=== PATIENT | female | born 1965 | race Caucasian/White ===

== ENCOUNTER → 2019-12-01 11:10 | Outpatient (BNVA) | payer MEDICARE, MEDICAID, SELFPAY | PROVIDERS: Family Provider Family Medicine; Referring Provider Physician Assistant Medical; Visit Provider Podiatrist Foot & Ankle Surgery | DX: M79.671 Pain in right foot (principal); M24.674 Ankylosis, right foot | CPT/HCPCS: 73630 ==

== ENCOUNTER 2019-12-01 14:31 | Outpatient (CLI) | payer MEDICARE, MEDICAID, SELFPAY | END 2019-12-01 14:32 | disposition home or self-care (01) | LOC: SPT 14:32 | PROVIDERS: Family Provider Family Medicine; Visit Provider Podiatrist Foot & Ankle Surgery | DX: M76.71 Peroneal tendinitis, right leg (principal) | CPT/HCPCS: L4361 ==

== ENCOUNTER 2021-03-18 10:29 | Emergency (ER) | payer MEDICARE, MEDICAID, SELFPAY ==
[2021-03-18 10:44] VITALS: BP 121/79; PULSE 80; RESP 15; TEMP 36.5; O2SAT 99; BMI 31.1
--- NOTE | 2021-03-18 11:00 | CTR_ITS ---
PROCEDURE INFORMATION: Exam: CT Abdomen And Pelvis Without Contrast Exam date and time: 03/18/2021 11:01 AM Age: 55 years old Clinical indication: Abdominal pain; Right; Patient HX: RT flank and low back pain; Additional info: Right flank pain TECHNIQUE: Imaging protocol: Computed tomography of the abdomen and pelvis without contrast. Radiation optimization: All CT scans at this facility use at least one of these dose optimization techniques: automated exposure control; mA and/or kV adjustment per patient size (includes targeted exams where dose is matched to clinical indication); or iterative reconstruction. COMPARISON: No relevant prior studies available. RADIATION DOSE METRICS: Total DLP (mGy-cm): 1449.62 FINDINGS: Liver: No mass. Gallbladder and bile ducts: Unremarkable. No ductal dilation. Pancreas: Normal. No ductal dilation. Spleen: Normal. No splenomegaly. Adrenal glands: Normal. No mass. Kidneys and ureters: 15 mm calculus in the right renal pelvis, right lower pole calculus. Minimal right hydronephrosis and right hydroureter, no ureteral calculus. Small left renal calculus versus parenchymal calcification, no left hydronephrosis. Stomach and bowel: No acute findings. No obstruction. No mucosal thickening. Appendix: No evidence of appendicitis. Intraperitoneal space: Unremarkable. No free air. No significant fluid collection. Vasculature: No abdominal aortic aneurysm. Lymph nodes: No significant adenopathy. Urinary bladder: Unremarkable as visualized. Reproductive: Hysterectomy. Bones/joints: No acute findings. Soft tissues: Unremarkable. CT/CT kidney stone [id number] IMPRESSION: Right renal calculi, minimal right hydronephrosis. Radiation Dose CTDIVOL = (mGy): DLP = 1449.62 (mGy-cm)
--- NOTE | 2021-03-18 11:02 | ED_ITS ---
HPI - Abdominal Pain General: Chief Complaint: Abdominal Pain Stated Complaint: FLANK AND ABD PAIN Time Seen by Provider: 03/18/21 10:56 Source: patient Mode of arrival: ambulatory Limitations: no limitations History of Present Illness: HPI narrative: Patient with right flank and right lower quadrant abdominal pain x1 week. Has been given a shot of IM Rocephin and has been on 4 days of Levaquin for presumed UTI/pyelonephritis. Pain is not improving. MD elicited complaint: abdominal pain Pain Consistency: constant Location: RLQ and R flank Associated Symptoms: Denies fever(s) Review of Systems General: Reports: 10 or more systems reviewed and unremarkable except in HPI and below Const: Denies: fever(s) Eyes: Denies: change in vision ENMT: Denies: throat pain Card: Denies: chest pain Resp: Denies: dyspnea GI: Reports: abdominal pain : Reports: flank pain Musc: Denies: neck pain Skin/Breast: Denies: rash PFSH ED PFSH: Medical History (Updated 12/01/19 @ 12:20 by Anant Arroyo DPM) Hyperlipidemia Hypertension Hypothyroid Seizure disorder Surgical History (Updated 12/01/19 @ 12:20 by Anant Arroyo DPM) History of bunionectomy of right great toe Hx of appendectomy Hx of hysterectomy Hx of tubal ligation Family History Denies family history of Diabetes CAD (coronary artery disease) Clotting disorder Dementia Hyperlipidemia Psychiatric illness Chronic kidney disease (CKD) Suicide Anesthesia complication Bleeding disorder Family history of premature coronary artery disease Lung disease Cancer Hypertension Stroke Social History (Updated 12/01/19 @ 11:49 by Susi De Leon LPN) Smoking and tobacco status: never smoked Alcohol intake: never Physical Exam Const: COMMON NORMALS: no acute distress, average body habitus, patient oriented x3, no limitations, healthy appearing, alert and well nourished HENMT: COMMON NORMALS: normocephalic, atraumatic, hearing grossly normal bilaterally, external ears normal, EAC's normal, TM's normal bilaterally, Normal external nose present, Normal nasal mucous membranes and turbinates present, moist oral mucous membranes, oropharynx normal, dentition normal and gingiva normal HEAD & SCALP: normocephalic and atraumatic NOSE: Normal external nose present and Normal nasal mucous membranes and turbinates present EXTERNAL EAR: Yes external ears normal EXTERNAL AUDITORY CANAL: EAC's normal TYMPANIC MEMBRANE: TM's normal bilaterally Neck/C-Spine: COMMON NORMALS: no JVD Resp: COMMON NORMALS: normal respiratory effort, No retractions, No use of accessory muscles, clear to auscultation bilaterally and percussion normal AUSCULTATION: clear to auscultation bilaterally PERCUSSION: percussion normal Cardio: COMMON NORMALS: no JVD, regular rate, regular rhythm, S1 normal heart sound present, S2 normal heart sound present, No gallops present (Cardio), No clicks present (Cardio), No murmurs present (Cardio), No rub (Cardio) and Peripheral pulses 2+ throughout RATE: regular rate RHYTHM: regular rhythm HEART SOUNDS: S1 normal heart sound present and S2 normal heart sound present PERIPHERAL PULSES: Peripheral pulses 2+ throughout GI: PALPATION: Yes Tenderness to palpation present (GI) (Mild tenderness to the right lower quadrant and right flank) Extremity: COMMON NORMALS: normal to inspection Neuro: COMMON NORMALS: patient oriented x3 SENSORIUM/ORIENTATION: Yes alert Course Vital Signs: Vital signs: Vital Signs Temperature 97.7 F 03/18/21 10:44 Pulse Rate 80 03/18/21 10:44 Respiratory Rate 15 03/18/21 10:44 Blood Pressure 121/79 03/18/21 10:44 Pulse Oximetry 99 03/18/21 10:44 MDM - Abdominal Pain MDM Narrative: Medical decision making narrative: Patient with UTI despite having been on Levaquin. We will switch antibiotics to Bactrim and give another dose of IV Rocephin as well as send urine off for culture. Patient also has very large intrarenal kidney stone on the right. Upon further discussion patient states that she gets UTIs about once a month for the past 2 years. Will have patient follow-up with urology to see if there is anything that needs to be done about this kidney stone. Offered pain medicine but patient refused. Lab Data: Labs: Lab Results 03/18/21 03/18/21 03/18/21 Range/Units 10:56 11:36 11:36 WBC 4.2 (4.0-10.0) 10^3/ uL RBC 4.66 (4.1-5.3) 10^6/u L Hgb 13.5 (11.5-15.3) g/dL Hct 41.6 (37.0-47.0) % MCV 89.3 (81-99) fL MCH 29.0 (28.0-34.0) pg MCHC 32.5 (30.0-36.0) g/dL RDW 12.9 (12.1-15.1) % Plt Count 200 (130-400) 10^3/c mm MPV 9.2 (7.4-10.4) fL Neut % (Auto) 40.4 % Lymph % (Auto) 44.7 % [place] % (Auto) 10.6 % Eos % (Auto) 3.1 % Baso % (Auto) 1.2 % Neut # (Auto) 1.68 L (1.8-7.7) 10^3/u L Lymph # (Auto) 1.9 (0.8-4.8) 10^3/u L [place] # (Auto) 0.4 (0.2-0.9) 10^3/u L Eos # (Auto) 0.1 (0.0-0.8) 10^3/u L Baso # (Auto) 0.1 (0.0-0.1) 10^3/u L Nucleated RBC % (a uto) 0 % Nucleated RBCs # 0.0 /100WBC Sodium 141 (136-145) mmol/L Potassium 4.4 (3.5-5.1) mmol/L Chloride 105 (98-107) mmol/L Carbon Dioxide 28 (22-29) mmol/L Anion Gap 12.4 (5-19) BUN 14 (6-20) mg/dL Creatinine 0.6 (0.5-0.9) mg/dL GFR Calculation 104.2 (90-130) mL/min Glucose 83 (65-115) mg/dL Calculated Osmolal ity 292 (285-295) mOsm/k g Calcium 8.9 (8.5-10.5) mg/dL Total Bilirubin 0.2 (0.15-1.2) mg/dL AST 25 (0-32) U/L ALT 24 (0-33) U/L Alkaline Phosphata se 131 H (35-105) IU/L Total Protein 7.1 (6.6-8.7) g/dL Albumin 4.2 (3.5-5.2) g/dL Globulin 2.9 (1.3-4.6) g/dL Urine Color Yellow (Yellow) Urine Appearance Hazy A (CLEAR) Urine pH 8 H (5-7) Ur Specific Gravit y 1.015 (1.005-1.030) Urine Protein Neg (Negative) Urine Glucose (UA) Norm (Normal) Urine Ketones Negative (Negative) Urine Blood 2+ H (Negative) Urine Nitrate Negative (Negative) Urine Bilirubin Neg (Negative) Prot Sulfosalicyli c Acd Negative (Negative) Urine Urobilinogen Norm (Negative) mg/dL Ur Leukocyte Loree ase 2+ H (Negative) Urine RBC 5-10 H (0-2) /hpf Urine WBC 55-80 H (0-5) /hpf Ur Squamous Epith Cells Rare (0-5) /hpf Amorphous Sediment 1+ /hpf Urine Bacteria 2+ H (NONE) /hpf Urine Mucus Trace /hpf Discharge Plan Discharge Condition: Stable Prescriptions: New sulfamethoxazole-trimethoprim [Bactrim DS] 800-160 mg tablet 1 tab PO BID 10 Days Qty: 20 RF: 0 No Action (DME) CAM WALKER Qty: 1 RF: 0 atorvastatin 20 mg tablet 20 mg PO BEDTIME RF: 0 krill oil 1 cap PO QAM RF: 0 multivitamin Tablet 1 tab PO BEDTIME RF: 0 Children's Tylenol 160 mg Tablet,Chewable 640 mg PO PRN RF: 0 phenytoin sodium extended 100 mg capsule 300 mg PO TID RF: 0 omeprazole 40 mg capsule,delayed release(DR/EC) 40 mg PO DAILY PRN (Reason: Heartburn) RF: 0 levothyroxine 75 mcg tablet 75 mcg PO QAM RF: 0 lisinopril 10 mg tablet 10 mg PO QAM RF: 0 Aleve 220 mg Tablet 440 mg PO PRN RF: 0 levofloxacin 500 mg tablet 500 mg PO DAILY RF: 0 albuterol sulfate 90 mcg/actuation HFA aerosol inhaler 4 puff INHALATION Q4H PRN (Reason: Shortness Of Breath) RF: 0 fenofibrate nanocrystallized 48 mg tablet 48 mg PO QAM RF: 0 Vitamin D3 125 mcg (5,000 unit) Tablet 125 mcg PO DAILY RF: 0 Probiotic 1 cap PO BEDTIME RF: 0 Discharge Orders: Discharge ED (Routine); Ordered 03/18/21 Ordered By: Ed Ding Referrals: Ino Rea MD [Primary Care Provider] - 4-7 days Sanchez Paulson MD [Physician] - 4-7 days Discharge Diet: Advance as tolerated Discharge Activity: Resume usual activity Coding Level of Care Code ED [facility] for Chg Fwd Exam Detailed
[2021-03-18 11:28] LABS: Bilirubin Urine Neg (Negative); Blood Urine 2+ (Negative); Glucose Urine UA Norm (Normal); Ketones Urine Negative (Negative); Nitrate Urine Negative (Negative); Protein Urine Neg (Negative); Specific Gravity, Urine 1.015 (1.005-1.030); Sulfosalicylic Acid Urine Negative (Negative); Urine Appearance Hazy (CLEAR); Urine Color Yellow (Yellow); Urobilinogen Urine Norm (Negative); pH Urine 8 (5-7)
[2021-03-18 11:29] LABS: Leukocyte Esterase Urine 2+ (Negative)
[2021-03-18 11:30] LABS: Bacteria Urine 2+ /hpf; Squamous Epithelial Cell Urine RARE /hpf (0-5); WBC Urine 55-80 /hpf (0-5)
[2021-03-18 11:31] LABS: Add Urine Culture? Yes; Amorphous Sediment Urine 1+ /hpf; Mucus Urine TRACE /hpf
[2021-03-18 11:49] LABS: Basophils # 0.1 10^3/uL (0.0-0.1); Basophils % 1.2 %; Eosinophils # 0.1 10^3/uL (0.0-0.8); Eosinophils % 3.1 %; Hematocrit 41.6 % (37.0-47.0); Hemoglobin 13.5 g/dL (11.5-15.3); Lymphocytes # 1.9 10^3/uL (0.8-4.8); Lymphocytes % 44.7 %; Mean Corpuscular HGB Conc 32.5 g/dL (30.0-36.0); Mean Corpuscular Volume 89.3 fL (81-99); Mean Platelet Volume 9.2 fL (7.4-10.4); Monocytes # 0.4 10^3/uL (0.2-0.9); Monocytes % 10.6 %; Neutrophils # 1.68 10^3/uL (1.8-7.7); Neutrophils % 40.4 %; Nucleated Red Blood Cells % 0 %; Platelet Count 200 10^3/cmm (130-400); Red Blood Count 4.66 10^6/uL (4.1-5.3); Red Cell Distribution Width 12.9 % (12.1-15.1); White Blood Count 4.2 10^3/uL (4.0-10.0)
[2021-03-18 12:11] LABS: Alanine Aminotransferase 24 U/L (0-33); Albumin Level 4.2 g/dL (3.5-5.2); Alkaline Phosphatase 131 IU/L (35-105); Anion Gap 12.4 (5-19); Aspartate Amino Transferase 25 U/L (0-32); Blood Urea Nitrogen 14 mg/dL (6-20); Calcium 8.9 mg/dL (8.5-10.5); Carbon Dioxide 28 mmol/L (22-29); Chloride 105 mmol/L (98-107); Globulin 2.9 g/dL (1.3-4.6); Glomerular Filtration Rate 104.2 mL/min (90-130); Glucose 83 mg/dL (65-115); Osmolality Calculated 292 mOsm/kg (285-295); Potassium 4.4 mmol/L (3.5-5.1); Sodium 141 mmol/L (136-145); Total Bilirubin 0.2 mg/dL (0.15-1.2); Total Protein 7.1 g/dL (6.6-8.7)
[2021-03-18 12:51] VITALS: BP 103/70; PULSE 82; RESP 16; O2SAT 99
[2021-03-18] MEDS: sulfamethoxazole-trimeth DS 160-800 mg Tablet 1 TAB PO (12:57)
[2021-03-18] MEDS: cefTRIAXone 1,000 MG in sodium chloride 0.9% (plus) 50 ML 100 MG IV (12:59)
--- NOTE | 2021-03-21 09:35 | DCPLANNER ---
Patient is to follow up with Dr. Paulson. aviation project manager called the office of Dr. Paulson, for a kidney stone. aviation project manager called the office of Dr. Paulson, spoke with [place], gave clinic patients information. aviation project manager was told that patients information would be printed and reviewed. Clinic will call patient with appointment information.
--- NOTE | 2021-03-22 14:25 | DCPLANNER ---
Patient has a follow up appointment scheduled for Friday, March 28, 2021 at 2:[address] Paulson. Clinic will call patient with appointment information.
--- NOTE | 2021-05-15 07:32 | DCPLANNER ---
Patient had a follow up appointment scheduled for 03.28.[address] Paulson - patient did attend appointment.
== END 2021-03-18 13:14 ==
PROVIDERS: Emergency Provider Emergency Medicine; PCP Family Medicine
DX: R10.9 Unspecified abdominal pain (principal); E78.5 Hyperlipidemia, unspecified; I10 Essential (primary) hypertension
CPT/HCPCS: 74176; 80053; 81001; 85025; 87086; 96365; 99283; J0696

== ENCOUNTER 2021-03-28 13:06 | Outpatient (CLI) | payer MEDICARE, MEDICAID, SELFPAY ==
--- NOTE | 2021-03-28 13:00 | XR_ITS ---
WS: [id number] KUB, AP view, 03/28/2021 Clinical Data: KIDNEY STONE Comparison: None. Findings: No abnormal intraabdominal masses are seen. There is no dilatated small bowel or evidence of obstruc tion. There are calcifications overlying the right kidney the largest of which measures 1.3 cm. No left zara al calcifications are seen. There are calcifications in the true pelvis. XR/XR KUB [id number] Impression: Right renal calcifications.
== END 2021-03-28 13:07 | disposition home or self-care (01) ==
LOC: RAD 13:08
PROVIDERS: PCP Family Medicine; Visit Provider Urology
DX: N20.0 Calculus of kidney (principal); Z20.822 Contact with and (suspected) exposure to COVID-19; N39.0 Urinary tract infection, site not specified
CPT/HCPCS: 74018; 81003; 87635

== ENCOUNTER 2021-04-02 11:59 | Day surgery (SDC) | payer MEDICARE, MEDICAID, SELFPAY ==
[2021-03-30 13:50] VITALS: BMI 30.7
--- NOTE | 2021-04-02 12:01 | XR_ITS ---
WS: [id number] Exam: XR KUB [id number] Date/Time of Exam: 04/02/2021 12:20 PM Reason For Exam: Preop right ESWL stent Comparison 03/28/2021. Several calcifications superimpose right renal silhouette and are most likely renal calculi. The larg est stone measures 1.3 cm at greatest diameter and appears to be in the region of the right renal pel vis. No calcifications noted in the region of the left kidney. Nonspecific bilateral pelvic calcifica tions noted. No bowel obstruction or free air. Visualized organ margins appear normal. XR/XR KUB [id number] IMPRESSION: 1. Calcifications superimposing the right kidney that apparently represent mult iple renal stones.
[2021-04-02 12:39] VITALS: BP 120/83; PULSE 75; RESP 18; TEMP 37.1; O2SAT 98
[2021-04-02] MEDS: sodium chloride 0.9% 1,000 ML 30 ML IV (13:14)
--- NOTE | 2021-04-02 14:16 | W.PM.OPSUD ---
Surgery/Procedure H&P Update DATE OF PROCEDURE: April 02, 2021 DATE H&P PERFORMED: 03/28/21 H&P UPDATE INFORMATION: I have reviewed H&P completed within last 30 days, I have examined patient prior to procedure, No changes to prior documentation and H&P is in [facility] EMR on date indicated PREOP DIAGNOSIS: 2 large right renal calculi PLANNED PROCEDURE: Operation Date: 04/02/21 13:55 Proposed Procedures p right ESWL [id number] 23277 n20.0(Right) - Sanchez Paulson MD s Cystoscopy(Not Applicable) - Sanchez Paulson MD s Ureteral Stent Placement(Not Applicable) - Sanchez Paulson MD
--- NOTE | 2021-04-02 14:17 | P.OP_ITS ---
Operative Report Date of procedure: April 02, 2021 Pre-op Diagnosis: 2 large right renal calculi Post-op diagnosis: same Procedure Done: 1. Cystoscopy, right ureteral stent placement (seven Marshallese by 24 cm double- pigtail sten without string t) Pathology: none sent Surgeon: Lorene Anesthesia: General Estimated blood loss: Minimal Urine output: Not measured Complications: None Findings: Stones easily located. 2500 shocks administered. Stent left indwelling at the completion of the procedure Condition: stable Disposition: PACU Brief History: Mrs. Abrams is a very pleasant 55-year-old white female recently diagnosed with two large stones in the right collecting system one near the UPJ and one in the midpole calyx. She has had complicated picture by UTIs but no obstructive pyelonephritis demonstrated. Admitted now for cystoscopy, stent placement, ESWL to the right renal calculi. Procedure: After routine preoperative evaluation examination and obtaining of informed consent she was taken to the operating suite on 04/02/2020 where general anesthesia was administered without difficulty after appropriate timeout was performed, SCDs confirmed to be functioning, preoperative antibiotics administered, beta-natalio protocol confirmed. Prepped and draped in usual sterile fashion in dorsolithotomy position paying careful attention to avoiding pressure points. 21 Marshallese cystoscope with 30 degree lens was introduced into urethra meatus and advanced into the bladder to videoscopy. Bladder was systematically examined and found to be within normal limits. Flexible tip guidewire was advanced up the left ureter up into the upper pole calyx and a seven Marshallese by 24 cm double-pigtail stent was advanced over the guidewire through the cystoscope into appropriate position as confirmed via fluoroscopy and cystoscopy. Bladder was drained and this portion of the procedure was completed. She was then repositioned on the Dornier unit such that the stone was located at the focal point first focusing on the renal pelvic stone. The stone was easily identified with the shock head positioned posteriorly. Intensity was initiated at one with advancement to an intensity of four after a several minute pause following about 300 shocks. Findings: The first stone (located in the UPJ area) was treated with about 1250 shocks with excellent change. The focal point was then brought to the calyceal stone in the interpolar area and it was treated with about the same number of shocks also with excellent change. At the completion of the shockwave therapy both stones were dramatically changed. The renal pelvic stone was very difficult to see at all. She was awakened in the operating room and returned to recovery room in stable condition. PLANS: 1. Follow-up in 7 to 10 days for KUB possible cystoscopy stent removal. 2. Did review again that there is a possibility that she will require second therapy or potentially more prolonged stent indwelling waiting for confirmation of adequate fragmentation.
--- NOTE | 2021-04-02 14:50 | ANES.PREANE2 ---
Pre-Anesthetic Assessment Pre-Anesthetic Assessment: Height/Weight: Height 1.57 m Weight 76.204 kg Temp Pulse Resp BP Pulse Ox 98.7 F 75 18 120/83 98 04/02/21 12:39 04/02/21 12:39 04/02/21 12:39 04/02/21 12:39 04/02/21 12:39 Preop Diagnosis: 2 large right renal calculi Proposed Procedure: Operation Date: 04/02/21 13:55 Proposed Procedures p right ESWL [id number] n20.0(Right) - Sanchez Paulson MD s Cystoscopy(Not Applicable) - Sanchez Paulson MD s Ureteral Stent Placement(Not Applicable) - Sanchez Paulson MD Was Beta Alexa taken within 24 hours: N/A Was Clonidine taken within 24 hours: N/A Last intake: Intake Last Liquid Date 04/02/21 Last Liquid Time 06:30 Last Solid Date 03/31/21 Last Solid Time 18:00 Social: Social History: No alcohol and No tobacco Exam: Pre-Anes Outpt Exam: alert, oriented x 3, clear to auscultation bilaterally and regular rate & rhythm Airway: Submandibular: WNL Cervical ROM: WNL MP: 2 CV/HEM: CV/HEM: HTN Metabolic: Metabolic: Thyroid Neuropsych: Neuropsych: Seizure Anesthetic Plan: ASA status: 2 Anesthesia: General Risk of > 500 ml blood loss (7ml/kg in children): No Meds/Allergies Current Medications: Current Medications Generic Name Dose Route Start Last Admin Trade Name Freq PRN Reason Stop Dose Admin Sodium Chloride 1,000 mls @ 30 ml s/hr 04/02/21 12:30 04/02/21 13:14 Sodium Chloride 0.9% IV 04/03/21 12:29 30 mls/hr .Q24H YARELY Administration PFSH Anesthesia PFSH: Medical History Hyperlipidemia Hypertension Hypothyroid Recurrent UTI Right renal stone Seizure disorder Surgical History History of bunionectomy of right great toe Hx of appendectomy Hx of hysterectomy Hx of tubal ligation Family History Mother , at age 69 Aortic aneurysm Father , at age 55 Cancer stomach Social History Smoking and tobacco status: never smoked Alcohol intake: never Marital status: Current occupational status: disabled History of recent travel: No Data Anesthesia Cardiac Studies: No Data to Display
[2021-04-02 15:49] VITALS: BP 141/89; PULSE 89; RESP 13; TEMP 36.1; O2SAT 97
[2021-04-02 15:55] VITALS: BP 144/87; PULSE 74; RESP 15; O2SAT 100
[2021-04-02 16:00] VITALS: BP 135/79; PULSE 65; RESP 16; TEMP 36.5; O2SAT 100
[2021-04-02 16:22] VITALS: BP 124/80; PULSE 62; RESP 18; TEMP 36.5; O2SAT 100
[2021-04-02 16:29] VITALS: BP 128/78; PULSE 56; RESP 18; TEMP 36.6; O2SAT 99
--- NOTE | 2021-04-02 16:58 | ANE.PACU2 ---
Inpatient post-anesthesia follow up: Airway intact: Yes Vital signs: Temperature 98 F Pulse Rate 56 Respiratory Rate 18 Blood Pressure 128/78 Pulse Oximetry 99 Oxygen Delivery Me thod Room Air Oxygen Flow Rate 8 Fraction of Inspir ed Oxygen Hydration adequate: Yes Nausea and vomiting: No Pain level: 2 Mental status: Baseline
== END 2021-04-02 16:50 | disposition home or self-care (01) ==
PROVIDERS: PCP Family Medicine; Visit Provider Urology
PROC: (CPT 50590; principal; 2021-04-02 13:55)
PROC: 0TJB8ZZ Inspection of Bladder, Via Natural or Artificial Opening Endoscopic (ICD-10-PCS; CPT 52000; 2021-04-02 13:55)
PROC: (CPT 50605; 2021-04-02 13:55)
DX: N20.0 Calculus of kidney (principal); I10 Essential (primary) hypertension; E78.5 Hyperlipidemia, unspecified; E03.9 Hypothyroidism, unspecified
CPT/HCPCS: 50590; 52332; 74018; C2625; J2250; J2405; J2704; J2710; J3010; J3490; J7030

== ENCOUNTER 2021-04-11 11:48 | Emergency (ER) | payer MEDICARE, MEDICAID, SELFPAY ==
[2021-04-11 12:16] VITALS: BP 124/81; PULSE 73; RESP 24; TEMP 36.9; O2SAT 97; BMI 29.8
--- NOTE | 2021-04-11 12:38 | CT_ITS ---
WS: [id number] CT ABDOMEN AND PELVIS WITH CONTRAST HISTORY: abd pain. post ureter stent. TECHNIQUE: Imaging performed of the abdomen and pelvis with IV contrast. Single phase imaging of the abdomen. Coronal and sagittal reformats are submitted. All CT scans at [facility] use at least one of these dose optimization techniques: automated exposure control; mA and/or kV adjustment per patient size (includes targeted exams where dose is matched to clinical indication); or iterativ e reconstruction. IV CONTRAST: Omnipaque 300; 95 mL IV. Oral contrast: No DLP: 1545.06 mGy.cm COMPARISON: 03/18/2021 Lower thorax: Lung bases are clear. Heart is normal size. No hiatal hernia. Liver/biliary system: Normal size with no intrahepatic dilatation. Gallbladder: Normal. No gallstones or wall thickening. No pericholecystic fluid. Pancreas: Normal size pancreas and pancreatic duct. No adjacent inflammation. Spleen: Normal size spleen. No mass or infarct. Adrenal glands: Normal. Right kidney: Placement of a RIGHT ureteral stent since the prior study. The proximal pigtail is not coiled within the central renal pelvis. There is slight uncoiling with the pigtail at the UPJ. Distal coil in the urinary bladder. There is a moderate amount of hydronephrosis despite the stent. Again n oted are several calcifications in the renal pelvis and layering within a calyx. Mild perinephric str anding. There is a calcification measuring 7 mm adjacent to the distal RIGHT ureter. Left kidney: Normal. Aorta: Mild atherosclerosis with no aneurysm. Lymphadenopathy: Small retroperitoneal shoddy lymph nodes. These lymph nodes may be reactive from the acute inflammatory process involving the RIGHT kidney. There is mild ureteral stranding surrounding the RIGHT ureter. Free fluid: None. GI tract: Prior appendectomy. No GI tract obstruction. Abdominal wall: Unremarkable abdominal wall. No hernia. Pelvis: Normally distended urinary bladder the distal coil RIGHT ureteral stent. No free fluid. No ad enopathy. Bones: Moderate disc space narrowing at L5-S1. CT/CT abdomen pelvis w con* [id number] IMPRESSION: 1. Interval placement of a double pigtail RIGHT ureteral stent since 03/18/2021 . 2. The proximal pigtail is only partially coiled near the UV junction. 3. Despite the RIGHT ureteral stent there is moderate hydroureteronephrosis wi th periureteral stranding. Consider there may be an obstruction of the ureteral stent. 4. 7 mm calcification adjacent to the distal RIGHT ureteral stent.
[2021-04-11] MEDS: ondansetron 2 mg/ML SDV 2 mL 4 MG IVP (12:50)
[2021-04-11] MEDS: sodium chloride 0.9% 1,000 ML 999 ML IV (12:51)
[2021-04-11 13:06] LABS: Basophils % 0.4 %; Eosinophils # 0.1 10^3/uL (0.0-0.8); Eosinophils % 1.4 %; Hematocrit 37.3 % (37.0-47.0); Hemoglobin 12.5 g/dL (11.5-15.3); Lymphocytes # 1.1 10^3/uL (0.8-4.8); Lymphocytes % 22.4 %; Mean Corpuscular HGB Conc 33.5 g/dL (30.0-36.0); Mean Corpuscular Hemoglobin 28.7 pg (28.0-34.0); Mean Corpuscular Volume 85.6 fL (81-99); Mean Platelet Volume 9.1 fL (7.4-10.4); Monocytes # 0.4 10^3/uL (0.2-0.9); Monocytes % 8.4 %; Neutrophils # 3.29 10^3/uL (1.8-7.7); Neutrophils % 67.2 %; Nucleated Red Blood Cells % 0 %; Platelet Count 189 10^3/cmm (130-400); Red Blood Count 4.36 10^6/uL (4.1-5.3); Red Cell Distribution Width 12.9 % (12.1-15.1); White Blood Count 4.9 10^3/uL (4.0-10.0)
[2021-04-11 13:15] LABS: HCG, Serum Qual Negative (Negative)
[2021-04-11 13:19] LABS: Add Urine Microscopic? YES; Bilirubin Urine Neg (Negative); Blood Urine 3+ (Negative); Glucose Urine UA Norm (Normal); Ketones Urine Negative (Negative); Leukocyte Esterase Urine 2+ (Negative); Nitrate Urine Negative (Negative); Protein Urine Neg (Negative); Specific Gravity, Urine 1.015 (1.005-1.030); Sulfosalicylic Acid Urine Positive (Negative); Urine Appearance Hazy (CLEAR); Urine Color Yellow (Yellow); Urobilinogen Urine Norm (Negative); pH Urine 9 (5-7)
[2021-04-11 13:20] LABS: Bacteria Urine 3+ /hpf; Squamous Epithelial Cell Urine 0-4 /hpf (0-5)
[2021-04-11 13:21] LABS: Add Urine Culture? Yes
[2021-04-11 13:23] LABS: Alanine Aminotransferase 25 U/L (0-33); Alkaline Phosphatase 136 IU/L (35-105); Anion Gap 14.5 (5-19); Aspartate Amino Transferase 21 U/L (0-32); Blood Urea Nitrogen 18 mg/dL (6-20); Calcium 8.9 mg/dL (8.5-10.5); Carbon Dioxide 23 mmol/L (22-29); Chloride 97 mmol/L (98-107); Globulin 2.7 g/dL (1.3-4.6); Glomerular Filtration Rate 87.2 mL/min (90-130); Glucose 120 mg/dL (65-115); Lipase 25 U/L (13-60); Osmolality Calculated 273 mOsm/kg (285-295); Potassium 4.5 mmol/L (3.5-5.1); Sodium 130 mmol/L (136-145); Total Bilirubin 0.3 mg/dL (0.15-1.2); Total Protein 6.7 g/dL (6.6-8.7)
[2021-04-11 13:24] LABS: Lactate (Lactic Acid level) 1.8 mmol/L (0.5-2.2)
[2021-04-11] MEDS: HYDROmorphone 1 mg/mL INJ 1 mL 0.5 MG IVP ×2 (13:35→16:26)
[2021-04-11 13:43] VITALS: BP 142/87; PULSE 79; RESP 16; O2SAT 97
[2021-04-11] MEDS: iohexol 300 mg/mL 100 mL Btl IV (13:54)
[2021-04-11 14:43] VITALS: BP 123/74; PULSE 68; RESP 16; O2SAT 99
[2021-04-11 15:52] VITALS: BP 131/77; PULSE 79; RESP 16; O2SAT 99
--- NOTE | 2021-04-11 16:24 | ED_ITS ---
HPI - Female Genitourinary General: Chief complaint: Urogenital-Female Stated complaint: back and R groin pain post surgery Time Seen by Provider: 04/11/21 13:01 History of Present Illness: HPI Narrative: The patient is a 55-year-old complaining of increased pain in the right flank radiating to her groin since last night. Today she says her pain continues and is worse. Denies fever. She says she had lithotripsy and a right ureteral stent placed 10 days ago and the pain increases significantly last night and she began to have last urination. MD elicited complaint: dysuria Female Urogenital Radiation: R Flank Quality of pain: cramping Consistency: constant Urinary symptoms: Dysuria and Flank Pain Exacerbating factors: urination Relieving factors: none Associated symptoms: Reports no associated symptoms; Deny abdominal pain or headache(s) Review of Systems General: Reports: 10 or more systems reviewed and unremarkable except in HPI and below Const: Denies: fatigue Eyes: Denies: change in vision, blurry vision or eye redness ENMT: Denies: throat pain, swelling of lips/tongue, ear or mastoid pain or nasal congestion Card: Denies: chest pain, palpitations, irregular heart rhythm, edema, dyspnea on exertion or orthopnea Resp: Denies: dyspnea, productive cough or non-productive cough GI: Denies: abdominal pain, diarrhea or GI cramping : Reports: flank pain and dysuria; Denies: difficulty voiding, urinary frequency or urinary urgency Musc: Denies: neck pain, back pain, extremity pain, joint pain, joint redness, limited range of motion or muscle weakness Skin/Breast: Denies: rash, pruritus, erythema, skin pain or skin tenderness Neuro: Denies: headache(s), numbness in extremities, weakness in extremities, sensory changes, difficulty walking, dizziness, confusion or Slurred speech present Psych: Denies: anxiety or depression Endo: Denies: polyuria All/Imm: Denies: urticaria, throat swelling or tongue swelling PFSH ED PFSH: Medical History Hyperlipidemia Hypertension Hypothyroid Recurrent UTI Right renal stone Seizure disorder Surgical History History of bunionectomy of right great toe Hx of appendectomy Hx of hysterectomy Hx of tubal ligation Family History Mother , at age 69 Aortic aneurysm Father , at age 55 Cancer stomach Social History Smoking and tobacco status: never smoked Alcohol intake: never Marital status: Current occupational status: disabled History of recent travel: No Physical Exam Const: COMMON NORMALS: no acute distress, average body habitus, patient oriented x3, no limitations, healthy appearing, alert and well nourished GENERAL APPEARANCE: cooperative, comfortable, well kempt and well developed ORIENTATION/CONSCIOUSNESS: Yes awake, Yes oriented to person, Yes oriented to place and Yes oriented to time HENMT: COMMON NORMALS: normocephalic, external ears normal and Normal external nose present HEAD & SCALP: normal to inspection and normocephalic NOSE: Normal external nose present EXTERNAL EAR: Yes external ears normal MOUTH: Normal oral and palatal mucosa present THROAT: posterior oropharynx normal Eye: COMMON NORMALS: Equal, round and reactive pupils present and EOMs intact bilaterally GENERAL EYE: appearance normal, both eyes and all related structures PUPIL: Yes Equal, round and reactive pupils present Neck/C-Spine: COMMON NORMALS: full ROM, no lymphadenopathy, no meningeal signs and no JVD GENERAL: Yes normal visual inspection Lymph: LYMPHATIC: no lymphadenopathy noted Chest: COMMONS NORMALS: normal inspection of the chest and normal palpation of entire chest wall Resp: COMMON NORMALS: normal respiratory effort, No retractions, No use of accessory muscles, clear to auscultation bilaterally and percussion normal EFFORT & INSPECTION: Yes able to speak in complete sentences AUSCULTATION: clear to auscultation bilaterally PERCUSSION: percussion normal Cardio: COMMON NORMALS: no JVD, regular rate, regular rhythm, S1 normal heart sound present, S2 normal heart sound present and Peripheral pulses 2+ throughout RATE: regular rate RHYTHM: regular rhythm HEART SOUNDS: S1 normal heart sound present and S2 normal heart sound present PERIPHERAL PULSES: Peripheral pulses 2+ throughout GI: COMMON NORMALS: Normal to inspection, nondistended, normoactive bowel sounds present, Soft to palpation, non-tender and no masses INSPECTION: Yes normal to inspection PALPATION: Yes Soft to palpation : OTHER: Right CVA tenderness radiating to the right groin. Back/Pelvis: COMMON NORMALS: thoracic and lumbar spine normal to inspection, no thoracic nor lumbar tenderness and thoraco-lumbar ROM normal Extremity: COMMON NORMALS: normal to inspection, full ROM, capillary refill normal, no joint enlargement and no pedal edema GENERAL: Yes normal exam except as noted Neuro: COMMON NORMALS: patient oriented x3, CN's II-XII intact bilaterally, moves all extremities, no focal motor deficits, no sensory deficits noted and gait normal SENSORIUM/ORIENTATION: Yes alert, Yes oriented to person, Yes oriented to place and Yes oriented to time MENINGEAL SIGNS: Yes no meningeal signs Psych: COMMON NORMALS: mental status grossly normal, Normal thought process present, cooperative, normal affect and speech normal APPEARANCE: Yes well kempt ATTITUDE: Yes calm SPEECH: Yes normal speech THOUGHT PROCESS: Normal thought process present Skin: COMMON NORMALS: no rashes or lesions noted GENERAL SKIN EXAM: no rashes or lesions noted Course Vital Signs: Vital signs: Vital Signs Temperature 98.4 F 04/11/21 12:16 Pulse Rate 79 04/11/21 15:52 Respiratory Rate 16 04/11/21 15:52 Blood Pressure 131/77 04/11/21 15:52 Pulse Oximetry 99 04/11/21 15:52 MDM - Female MDM Narrative: Medical decision making narrative: Patient has known kidney stone she says she had increase of her pain last night and less urination. She was given IV fluids here and did urinate some Flora and small stone discharge. CT shows hydroureter nephrosis on the right side with periureteral stranding. Creatinine normal. Discussed with Dr. Paulson who recommended she follow-up as outpatient if her pain is tolerable. She was given Dilaudid and her pain significantly improved. She thinks she will be fine with [place] at home. She has an appointment with him Friday and will follow up then. ER with worsening symptoms at any time Lab Data: Labs: Lab Results 04/11/21 04/11/21 04/11/21 Range/Units 12:49 12:49 12:49 WBC 4.9 (4.0-10.0) 10^3/ uL RBC 4.36 (4.1-5.3) 10^6/u L Hgb 12.5 (11.5-15.3) g/dL Hct 37.3 (37.0-47.0) % MCV 85.6 (81-99) fL MCH 28.7 (28.0-34.0) pg MCHC 33.5 (30.0-36.0) g/dL RDW 12.9 (12.1-15.1) % Plt Count 189 (130-400) 10^3/c mm MPV 9.1 (7.4-10.4) fL Neut % (Auto) 67.2 % Lymph % (Auto) 22.4 % [place] % (Auto) 8.4 % Eos % (Auto) 1.4 % Baso % (Auto) 0.4 % Neut # (Auto) 3.29 (1.8-7.7) 10^3/u L Lymph # (Auto) 1.1 (0.8-4.8) 10^3/u L [place] # (Auto) 0.4 (0.2-0.9) 10^3/u L Eos # (Auto) 0.1 (0.0-0.8) 10^3/u L Baso # (Auto) 0.0 (0.0-0.1) 10^3/u L Nucleated RBC % (a uto) 0 % Nucleated RBCs # 0.0 /100WBC Sodium 130 L (136-145) mmol/L Potassium 4.5 (3.5-5.1) mmol/L Chloride 97 L (98-107) mmol/L Carbon Dioxide 23 (22-29) mmol/L Anion Gap 14.5 (5-19) BUN 18 (6-20) mg/dL Creatinine 0.7 (0.5-0.9) mg/dL GFR Calculation 87.2 L (90-130) mL/min Glucose 120 H (65-115) mg/dL Calculated Osmolal ity 273 L (285-295) mOsm/k g Lactate 1.8 (0.5-2.2) mmol/L Calcium 8.9 (8.5-10.5) mg/dL Total Bilirubin 0.3 (0.15-1.2) mg/dL AST 21 (0-32) U/L ALT 25 (0-33) U/L Alkaline Phosphata se 136 H (35-105) IU/L Total Protein 6.7 (6.6-8.7) g/dL Albumin 4.0 (3.5-5.2) g/dL Globulin 2.7 (1.3-4.6) g/dL Lipase 25 (13-60) U/L HCG, Qual (Negative) Urine Color (Yellow) Urine Appearance (CLEAR) Urine pH (5-7) Ur Specific Gravit y (1.005-1.030) Urine Protein (Negative) Urine Glucose (UA) (Normal) Urine Ketones (Negative) Urine Blood (Negative) Urine Nitrate (Negative) Urine Bilirubin (Negative) Prot Sulfosalicyli c Acd (Negative) Urine Urobilinogen (Negative) mg/dL Ur Leukocyte Loree ase (Negative) Urine RBC (0-2) /hpf Urine WBC (0-5) /hpf Ur Squamous Epith Cells (0-5) /hpf Amorphous Sediment Urine Bacteria (NONE) /hpf 04/11/21 04/11/21 Range/Units 12:49 13:00 WBC (4.0-10.0) 10^3/ uL RBC (4.1-5.3) 10^6/u L Hgb (11.5-15.3) g/dL Hct (37.0-47.0) % MCV (81-99) fL MCH (28.0-34.0) pg MCHC (30.0-36.0) g/dL RDW (12.1-15.1) % Plt Count (130-400) 10^3/c mm MPV (7.4-10.4) fL Neut % (Auto) % Lymph % (Auto) % [place] % (Auto) % Eos % (Auto) % Baso % (Auto) % Neut # (Auto) (1.8-7.7) 10^3/u L Lymph # (Auto) (0.8-4.8) 10^3/u L [place] # (Auto) (0.2-0.9) 10^3/u L Eos # (Auto) (0.0-0.8) 10^3/u L Baso # (Auto) (0.0-0.1) 10^3/u L Nucleated RBC % (a uto) % Nucleated RBCs # /100WBC Sodium (136-145) mmol/L Potassium (3.5-5.1) mmol/L Chloride (98-107) mmol/L Carbon Dioxide (22-29) mmol/L Anion Gap (5-19) BUN (6-20) mg/dL Creatinine (0.5-0.9) mg/dL GFR Calculation (90-130) mL/min Glucose (65-115) mg/dL Calculated Osmolal ity (285-295) mOsm/k g Lactate (0.5-2.2) mmol/L Calcium (8.5-10.5) mg/dL Total Bilirubin (0.15-1.2) mg/dL AST (0-32) U/L ALT (0-33) U/L Alkaline Phosphata se (35-105) IU/L Total Protein (6.6-8.7) g/dL Albumin (3.5-5.2) g/dL Globulin (1.3-4.6) g/dL Lipase (13-60) U/L HCG, Qual Negative (Negative) Urine Color Yellow (Yellow) Urine Appearance Hazy A (CLEAR) Urine pH 9 H (5-7) Ur Specific Gravit y 1.015 (1.005-1.030) Urine Protein Neg (Negative) Urine Glucose (UA) Norm (Normal) Urine Ketones Negative (Negative) Urine Blood 3+ H (Negative) Urine Nitrate Negative (Negative) Urine Bilirubin Neg (Negative) Prot Sulfosalicyli c Acd Positive (Negative) Urine Urobilinogen Norm (Negative) mg/dL Ur Leukocyte Loree ase 2+ H (Negative) Urine RBC 10-15 H (0-2) /hpf Urine WBC 5-10 H (0-5) /hpf Ur Squamous Epith Cells 0-4 H (0-5) /hpf Amorphous Sediment Not Reportable Urine Bacteria 3+ H (NONE) /hpf Discharge Plan Discharge Patient Disposition: Home Clinical Impression: Ureterolithiasis Condition: Stable Prescriptions: New hydrocodone-acetaminophen 5-325 mg tablet 1 tab PO Q6H PRN (Reason: pain) Qty: 15 RF: 0 No Action atorvastatin 20 mg tablet 20 mg PO BEDTIME RF: 0 krill oil 1 cap PO QAM RF: 0 Hold Instructions: Resume on 04/09/21. sulfamethoxazole-trimethoprim 800-160 mg tablet 1 tab PO BID Qty: 60 RF: 1 multivitamin Tablet 1 tab PO BEDTIME RF: 0 phenytoin sodium extended 100 mg capsule 300 mg PO TID RF: 0 omeprazole 40 mg capsule,delayed release(DR/EC) 40 mg PO DAILY PRN (Reason: Heartburn) RF: 0 levothyroxine 75 mcg tablet 75 mcg PO QAM RF: 0 lisinopril 10 mg tablet 10 mg PO QAM RF: 0 albuterol sulfate 90 mcg/actuation HFA aerosol inhaler 4 puff INHALATION Q4H PRN (Reason: Shortness Of Breath) RF: 0 fenofibrate nanocrystallized 48 mg tablet 48 mg PO QAM RF: 0 cholecalciferol (vitamin D3) [Vitamin D3] 125 mcg (5,000 unit) Tablet 125 mcg PO DAILY RF: 0 Probiotic 1 cap PO BEDTIME RF: 0 hydrocodone-acetaminophen 5-325 mg tablet 1 tab PO Q8H PRN (Reason: pain) Qty: 10 RF: 0 Discharge Orders: Discharge ED (Routine); Ordered 04/11/21 Ordered By: Jason Hooks Referrals: Ino eRa MD [Primary Care Provider] - Discharge Diet: Advance as tolerated Discharge Activity: Resume usual activity Patient Instructions: Kidney Stones (ED), Opioid Safety Activity Restrictions/Additional Instructions: You have came in with flank pain and have a recent stent placed in your ureter to help you pass stones as well as lithotripsy to help break them up. You are continuing to pass the stones and having pain. Please continue to take the Valeria trim for a possible infection and drink lots of fluids. Follow-up with Dr. Paulson Friday as you already have planned. Take the hydrocodone for severe pain only and do not mix with drugs, alcohol, nor operate machinery while using this medication. Return to the ER with worsening symptoms at any time. Coding Level of Care Code ED Calender Roll Press Operator for Cherry Fernandez
[2021-04-11 17:13] VITALS: BP 115/68; PULSE 82; RESP 16; O2SAT 97
== END 2021-04-11 17:00 | disposition home or self-care (01) ==
PROVIDERS: Emergency Provider Family Medicine; PCP Family Medicine
DX: N20.1 Calculus of ureter (principal); E78.5 Hyperlipidemia, unspecified; I10 Essential (primary) hypertension; Z87.442 Personal history of urinary calculi
CPT/HCPCS: 74177; 80053; 81001; 83605; 83690; 84703; 85025; 87086; 96361; 96374; 96375; 96376; 99284; J1170; J2405; J7030; Q9967

== ENCOUNTER 2021-04-13 08:55 | Outpatient (CLI) | payer MEDICARE, MEDICAID, SELFPAY ==
--- NOTE | 2021-04-13 08:59 | XR_ITS ---
WS: [id number] KUB, AP view, 04/13/2021 Clinical Data: post op Comparison: KUB, 04/02/2021. Findings: There is a right ureteral catheter in position. There are calcifications overlying the right kidney b ut they are obscured by fecal material and gas. XR/XR KUB [id number] Impression: Right ureteral catheter.
== END 2021-04-13 08:56 | disposition home or self-care (01) ==
PROVIDERS: PCP Family Medicine; Visit Provider Urology
DX: Z98.890 Other specified postprocedural states (principal); Z96.0 Presence of urogenital implants
CPT/HCPCS: 74018; 81003; 82365; 88300

== ENCOUNTER 2021-04-16 09:14 | Outpatient (CLI) | payer MEDICARE, MEDICAID, SELFPAY ==
--- NOTE | 2021-04-16 08:30 | XRR_ITS ---
PROCEDURE INFORMATION: Exam: XR Abdomen Exam date and time: 04/16/2021 8:30 AM Age: 55 years old Clinical indication: Condition or disease; Kidney or ureter condition; Other: Ureterolithiasis; Prior surgery; Surgery type: Kidney stent, appy, tubal, hyst TECHNIQUE: Imaging protocol: XR of the abdomen. Views: Frontal supine view of the abdomen. 1 View. COMPARISON: CR XR KUB [id number] 04/13/2021 9:21 AM FINDINGS: Tubes, catheters and devices: A right ureteral stent projects in satisfactory position. Multiple calcifications project in the lower pole of the right kidney. No calcifications are seen in the projection of the left kidney or ureters. Small phleboliths are present in the pelvis. Gastrointestinal tract: Normal. No bowel dilation. Bones/joints: Unremarkable. XR/XR KUB [id number] IMPRESSION: 1. Right nephrolithiasis. 2. No definite ureteral calculi are seen.
== END 2021-04-16 09:15 | disposition home or self-care (01) ==
LOC: RAD 09:19
PROVIDERS: PCP Family Medicine; Visit Provider Urology
DX: N20.1 Calculus of ureter (principal); N20.0 Calculus of kidney
CPT/HCPCS: 74018

== ENCOUNTER 2021-04-20 06:55 | Outpatient (CLI) | payer MEDICARE, MEDICAID, SELFPAY ==
--- NOTE | 2021-04-20 07:15 | XR_ITS ---
WS: [id number] KUB, AP view, 04/20/2021 Clinical Data: stone Comparison: KUB, 04/16/2021. Findings: The right ureteral stent remains in good position. There are calcifications overlying the right kidne y but none overlying the left kidney. Fecal material and gas obscures detail over both kidneys. No abnormal intraabdominal masses are seen. There is no dilatated small bowel or evidence of obstruct ion. There are phleboliths in the true pelvis. XR/XR KUB [id number] Impression: 1. No change in right ureteral stent. 2. No change in right renal calcifications.
== END 2021-04-20 06:56 | disposition home or self-care (01) ==
PROVIDERS: PCP Family Medicine; Visit Provider Urology
DX: N20.9 Urinary calculus, unspecified (principal); Z96.0 Presence of urogenital implants; N20.0 Calculus of kidney
CPT/HCPCS: 74018; 81003

== ENCOUNTER 2021-04-25 09:36 | Outpatient (CLI) | payer MEDICARE, MEDICAID, SELFPAY ==
--- NOTE | 2021-04-25 10:15 | XR_ITS ---
WS: [id number] KUB, AP view, 04/25/2021 Clinical Data: RIGHT RENAL STONE Comparison: KUB, 04/20/2021. Findings: The right ureteral stent remains in good position. There are calcifications overlying the right kidne y but none on the left. XR/XR KUB [id number] Impression: No change in right ureteral stent and right renal calcifications.
== END 2021-04-25 09:37 | disposition home or self-care (01) ==
PROVIDERS: PCP Family Medicine; Visit Provider Urology
DX: N20.0 Calculus of kidney (principal); Z96.0 Presence of urogenital implants; Z20.822 Contact with and (suspected) exposure to COVID-19
CPT/HCPCS: 74018; 81003; 87635

== ENCOUNTER → 2021-04-27 09:45 | Outpatient (BNVA) | payer MEDICARE, MEDICAID, SELFPAY | PROVIDERS: PCP Family Medicine; Visit Provider Urology | DX: N20.0 Calculus of kidney (principal) | CPT/HCPCS: 87635 ==

== ENCOUNTER → 2021-05-03 10:35 | Outpatient (BNVA) | payer MEDICARE, MEDICAID, SELFPAY | PROVIDERS: PCP Family Medicine; Visit Provider Urology | DX: N20.0 Calculus of kidney (principal) | CPT/HCPCS: 87635 ==

== ENCOUNTER 2021-05-07 12:45 | Day surgery (SDC) | payer MEDICARE, MEDICAID, SELFPAY ==
[2021-05-07] VITALS (7 sets, daily range): BP systolic 140–157; BP diastolic 78–95; PULSE 59–99; RESP 12–21; TEMP 36.1–36.8; O2SAT 97–100
--- NOTE | 2021-05-07 12:51 | XRR_ITS ---
PROCEDURE INFORMATION: Exam: XR Abdomen Exam date and time: 05/07/2021 12:51 PM Age: 55 years old Clinical indication: Screening exam; Other: Preop right ureteroscopy; Prior surgery; Surgery type: Appy, hyst, renal stent; Patient HX: HX of kidney stone R with stent placed. Pre=op right ureteroscopy today TECHNIQUE: Imaging protocol: XR of the abdomen. Views: Frontal supine view of the abdomen. 1 View. COMPARISON: CR XR KUB [id number] 04/25/2021 9:49 AM FINDINGS: Tubes, catheters and devices: A right ureteral stent projects in satisfactory position. Multiple calcifications project on the right kidney which are similar to previous study. No calcifications are seen in the projection of the left kidney or left ureter. Gastrointestinal tract: Normal. No bowel dilation. Bones/joints: Unremarkable. XR/XR KUB [id number] IMPRESSION: 1. Satisfactory position of the right ureteral stent. 2. Stable right nephrolithiasis.
--- NOTE | 2021-05-07 13:31 | W.PM.OPSUD ---
Surgery/Procedure H&P Update DATE OF PROCEDURE: May 07, 2021 DATE H&P PERFORMED: 04/25/21 H&P UPDATE INFORMATION: I have reviewed H&P completed within last 30 days, I have examined patient prior to procedure, No changes to prior documentation and H&P is in [facility] EMR on date indicated PREOP DIAGNOSIS: Residual right renal pelvic stones following ESWL PLANNED PROCEDURE: Operation Date: 05/07/21 14:45 Proposed Procedures p Laser Lithotripsy 74626 [id number] 89010 n20.0(Not Applicable) - Sanchez Paulson MD s Cystoscopy(Not Applicable) - Sanchez Paulson MD s Ureteroscopy(Not Applicable) - Sanchez Paulson MD s Retrograde Pyelogram(Not Applicable) - Sanchez Paulson MD s Ureteral Stent Exchange(Not Applicable) - Sanchez Paulson MD
--- NOTE | 2021-05-07 13:48 | ANES.PREANE2 ---
Pre-Anesthetic Assessment Pre-Anesthetic Assessment: Height/Weight: Height 1.55 m Temp Pulse Resp BP Pulse Ox 98.2 F 76 16 143/84 98 05/07/21 13:18 05/07/21 13:18 05/07/21 13:18 05/07/21 13:18 05/07/21 13:18 Preop Diagnosis: Residual right renal pelvic stones following ESWL Proposed Procedure: Operation Date: 05/07/21 14:45 Proposed Procedures p Laser Lithotripsy 19923 [id number] n20.0(Not Applicable) - Sanchez Paulson MD s Cystoscopy(Not Applicable) - Sanchez Paulson MD s Ureteroscopy(Not Applicable) - Sanchez Paulson MD s Retrograde Pyelogram(Not Applicable) - Sanchez Paulson MD s Ureteral Stent Exchange(Not Applicable) - Sanchez Paulson MD Familial anesthetic complications: sore throat 3 weeks post intubation on previous surgery - Anesthesia record lists atraumatic intubation, but doesn't document airway or tubesize Was Beta Alexa taken within 24 hours: N/A Was Clonidine taken within 24 hours: N/A Last intake: Intake Last Liquid Date 05/07/21 Last Liquid Time 08:00 Last Solid Date 05/06/21 Last Solid Time 21:00 Social: Social History: No alcohol and No tobacco Exam: Pre-Anes Outpt Exam: alert, oriented x 3, clear to auscultation bilaterally and regular rate & rhythm Airway: Cervical ROM: WNL MP: 2 Dentition: Other (missing) CV/HEM: CV/HEM: HTN GI: GI: GERD Metabolic: Metabolic: Hyperlipidemia, Morbid obesity and Thyroid Neuropsych: Neuropsych: Seizure Anesthetic Plan: ASA status: 3 Anesthesia: General Risk of > 500 ml blood loss (7ml/kg in children): No PFSH Anesthesia PFSH: Medical History Hyperlipidemia Hypertension Hypothyroid Recurrent UTI Right renal stone Seizure disorder Surgical History History of bunionectomy of right great toe Hx of appendectomy Hx of hysterectomy Hx of tubal ligation Family History Mother , at age 69 Aortic aneurysm Father , at age 55 Cancer stomach Social History Alcohol intake: never Marital status: Current occupational status: disabled History of recent travel: No Data Anesthesia Cardiac Studies: No Data to Display
[2021-05-07] MEDS: sodium chloride 0.9% 1,000 ML 30 ML IV (13:56)
[2021-05-07] MEDS: levofloxacin-dextrose 5 % 500 MG/100 ML PREMIX 100 MG IV (14:10)
--- NOTE | 2021-05-07 15:52 | P.PCN_ITS ---
PACU note PACU note: VSS, Good respiratory effort, report to DIAPER MACHINE TENDER Post-Anesthesia Exam: awake
--- NOTE | 2021-05-07 15:52 | PM.PACU ---
PACU note PACU note: VSS, Good respiratory effort, report to REFRIGERATION SYSTEM INSTALLER Post-Anesthesia Exam: awake
--- NOTE | 2021-05-07 16:01 | PM.OP ---
Operative Report Date of procedure: May 07, 2021 Pre-op Diagnosis: Residual right renal pelvic stones following ESWL Post-op Diagnosis: Residual renal pelvic stone and posterior calyceal stones Post-op Findings: Large amount of residual stone burden following ESWL. Character of the stone was very different than normal. A gelatinous matrix type of stone possibly infectious accounted for most of the stone although there was some typical calcium oxalate type hard stone pieces as well Implants: 7 x 24 cm ureteral stent without string Specimens removed/disposition: Sand and stone particles Pathology: Sand and stone particles Surgeon: Lorene Anesthesia: General Estimated blood loss: Less than 10 cc Urine output: not measured Complications: None Findings: The left stent stone seen previously at the UPJ was almost entirely intact with some minimal fragmentation previous with ESWL. Its character was very different than normal stones. Almost the texture of rotten wood. It did break up well though with laser lithotripsy but it was fairly arduous task. In the posterior calyx there was a completely different type of stone with mixture of similar material as well as typical calcium stones in sort of a matrix web. A lot of fragmentation was performed but I am not sure that all of the stone fragments were thoroughly treated. At some point it became To cloudy and more difficult to see and for that reason the procedure was completed Condition: stable Disposition: PACU Brief History: . Ms. Henry is a very pleasant 55-year-old white female recently diagnosed with [address] scan one at the UPJ and one in the posterior calyx. They look to be very different character on plain x-ray 1 with the UPJ was very faint and the other look to be more typical. She has already been treated with stenting and ESWL with the appearance of still an accumulation of possible fragments or sand with the less dense stone and clearly fragmentation of the posterior calyx stone. There is still some pieces that were felt to be too large to pass and for that reason and because of the unusual character on plain x-ray was decided to perform endoscopic treatment. Procedure: After routine preoperative evaluation examination and obtaining of informed consent she was taken to the operating suite on 05/07/2021 where general anesthesia was administered without difficulty after appropriate timeout was performed, SCDs confirmed to be functioning, preoperative antibiotics administered, beta-natalio protocol confirmed. Prepped and draped in usual sterile fashion in dorsolithotomy position paying careful attention to avoiding pressure points. 21 Maltese cystoscope with 30 degree lens was introduced into urethra meatus and advanced into the bladder without difficulty. A flexible guidewire was advanced next to the stent up into the kidney and the stent was removed without difficulty with grasping forceps. The wire was secured to the drapes as a safety wire and an offset semirigid ureteroscope was advanced up the ureter without difficulty. A few fragments were identified and basketed. The ureter showed some mild inflammatory changes but nothing dramatic. The scope could not be passed all the way into the renal pelvis and a second guidewire was passed and the scope removed. A 38 cm ureteral access sheath was then advanced over the guidewire (working) to just below the UPJ. The inner sheath was removed the guidewire was removed and good drainage of urine was noted. A flexible ureteroscope was then advanced through the sheath into the renal pelvis. Surprisingly there was a large stone fragment at the UPJ/renal pelvis area. There was a cluster of stones of unusual character in the posterior calyx 2. A 365 ?m thulium superpulse laser fiber was then utilized to fragment the larger renal pelvic stone. It had a very unusual character almost the texture of rotten wood but it did fragment thankfully into very small pieces of sand. A lot of these were irrigated out through the scope and sent for pathologic evaluation. After it was completely fragmented and the calyces around it were inspected and found to be free of fragments from this the scope was then directed to the posterior calyx seen previously. While there were some areas that look to be typical calcium oxalate stone the other areas where the stone appeared to be embedded on the wall of the posterior calyx in a more cephalad position. It was hard to see the whole area. It was also very friable around it. There is no obvious abnormal neoplastic process identified. The laser was then utilized to fragment the areas that were clearly stony type material. A large amount of this was completed but I think there was still some remaining. The did agree of debris as well as generalized oozing from this area made it difficult to continue beyond a certain point without compromising safety. At that point it was decided to complete the procedure. Cystoscope was then backloaded over the guidewire and a 7 Maltese by 24 cm double-pigtail stent was advanced over the guidewire through the cystoscope and appropriate position as confirmed via fluoroscopy cystoscopy. Fragments in the bladder were removed. Procedure completed. Tolerated procedure well without complications and was awakened in the operating room and returned to the care of room in stable condition. PLANS: 1. Because of the unusual character of the stone and inability to say for sure that the stone has been completely cleared especially of the posterior calyx it was decided to recommend repeat relook in approximately 3 weeks after healing as well as flushing of the fragments that should easily pass around the stent.
--- NOTE | 2021-05-07 16:30 | ANE.PACU2 ---
Inpatient post-anesthesia follow up: Airway intact: Yes Vital signs: Temperature 97.9 F Pulse Rate 59 Respiratory Rate 18 Blood Pressure 150/78 Pulse Oximetry 98 Oxygen Delivery Me thod Room Air Oxygen Flow Rate 8 Fraction of Inspir ed Oxygen Hydration adequate: Yes Nausea and vomiting: No Pain level: 2 Mental status: Baseline
[2021-05-07] MEDS: HYDROcodone-acetaminophen 5-325 mg Tablet 1 TAB PO (17:00)
[2021-05-12 00:02] LABS: Stone Source RENAL
== END 2021-05-07 17:05 | disposition home or self-care (01) ==
PROVIDERS: PCP Family Medicine; Visit Provider Urology
PROC: (CPT 52356; principal; 2021-05-07 14:45)
PROC: 0TJB8ZZ Inspection of Bladder, Via Natural or Artificial Opening Endoscopic (ICD-10-PCS; CPT 52000; 2021-05-07 14:45)
PROC: 0TJ98ZZ Inspection of Ureter, Via Natural or Artificial Opening Endoscopic (ICD-10-PCS; CPT 52351; 2021-05-07 14:45)
PROC: (CPT 74420; 2021-05-07 14:45)
PROC: (CPT 52356; 2021-05-07 14:45)
DX: N20.0 Calculus of kidney (principal); I10 Essential (primary) hypertension; K21.9 Gastro-esophageal reflux disease without esophagitis; E78.5 Hyperlipidemia, unspecified; E66.01 Morbid (severe) obesity due to excess calories; E03.9 Hypothyroidism, unspecified
CPT/HCPCS: 52356; 74018; 82365; 88300; C2625; J1956; J2405; J2704; J2710; J3010; J3490; J7030

== ENCOUNTER → 2021-05-31 10:35 | Outpatient (BNVA) | payer MEDICARE, MEDICAID, SELFPAY | PROVIDERS: PCP Family Medicine; Visit Provider Urology | DX: Z20.822 Contact with and (suspected) exposure to COVID-19 (principal); N39.0 Urinary tract infection, site not specified; N20.0 Calculus of kidney | CPT/HCPCS: 81003; 87635 ==

== ENCOUNTER 2021-06-04 13:00 | Day surgery (SDC) | payer MEDICARE, MEDICAID, SELFPAY ==
[2021-06-04] VITALS (7 sets, daily range): BP systolic 107–137; BP diastolic 74–86; PULSE 63–89; RESP 16–18; TEMP 36.3–36.5; O2SAT 94–100
--- NOTE | 2021-06-04 | SCC_ITS ---
Procedure Done: 1. Cystoscopy with right ureteral stent exchange 2. Right ureteroscopy, laser lithotripsy 37.1 seconds of fluoroscopic guidance, for a cumulative dose of 6.07 mGy, was provided to Dr. Paulson by the radiology department. C-arm images of the abdomen were saved for the patient's permanent record. [facility]
--- NOTE | 2021-06-04 13:11 | SC_ITS ---
WS: [id number] C-ARM RADIOGRAPHS ABDOMEN; 2 IMAGES HISTORY: Right ureteroscopy COMPARISON: None available. Intraoperative imaging during RIGHT ureteral stent placement. Proximal pigtail is coiled in the expec lorelei location of the renal pelvis. SC/C-arm FL for Urology IMPRESSION: Intraoperative imaging during RIGHT ureteroscopy and stent placement.
[2021-06-04] MEDS: iohexol 300 mg/mL 50 mL Btl (OR ONLY) XX (13:45)
[2021-06-04] MEDS: sodium chloride 0.9% 1,000 ML 30 ML IV (13:53)
--- NOTE | 2021-06-04 14:20 | ANES.PREANE2 ---
Pre-Anesthetic Assessment Pre-Anesthetic Assessment: Height/Weight: Height 1.57 m Temp Pulse Resp BP Pulse Ox 97.5 F L 63 18 131/83 100 06/04/21 13:28 06/04/21 13:28 06/04/21 13:28 06/04/21 13:28 06/04/21 13:28 Preop Diagnosis: Residual right renal calculi Proposed Procedure: Operation Date: 06/04/21 14:20 Proposed Procedures p Cystoscopy 05513 42128 04455 N20.0(Not Applicable) - Sanchez Paulson MD s Ureteroscopy(Right) - MD alexandre Rosas Retrograde Pyelogram(Not Applicable) - MD alexandre Rosas Laser Lithotripsy(Not Applicable) - Sanchez Paulson MD s Ureteral Stent Exchange(Not Applicable) - Sanchez Paulson MD Familial anesthetic complications: None Was Beta Alexa taken within 24 hours: N/A Was Clonidine taken within 24 hours: N/A Last intake: Intake Last Liquid Date 06/04/21 Last Liquid Time 08:00 Last Solid Date 06/03/21 Last Solid Time 20:00 Social: Social History: No alcohol and No tobacco Exam: Pre-Anes Outpt Exam: alert, oriented x 3, clear to auscultation bilaterally and regular rate & rhythm Airway: Cervical ROM: WNL MP: 2 Dentition: Other (missing teeth) GI: GI: GERD Metabolic: Metabolic: Hyperlipidemia and Thyroid Neuropsych: Neuropsych: Seizure Anesthetic Plan: ASA status: 3 Anesthesia: General Risk of > 500 ml blood loss (7ml/kg in children): No Meds/Allergies Current Medications: Current Medications Generic Name Dose Route Start Last Admin Trade Name Freq PRN Reason Stop Dose Admin Sodium Chloride 1,000 mls @ 30 ml s/hr 06/04/21 13:15 06/04/21 13:53 Sodium Chloride 0.9% IV 06/05/21 13:14 30 mls/hr .Q24H YARELY Administration PFSH Anesthesia PFSH: Medical History Hyperlipidemia Hypertension Hypothyroid Recurrent UTI Right renal stone Seizure disorder Surgical History History of bunionectomy of right great toe Hx of appendectomy Hx of hysterectomy Hx of tubal ligation Family History Mother , at age 69 Aortic aneurysm Father , at age 55 Cancer stomach Social History Alcohol intake: never Marital status: Current occupational status: disabled History of recent travel: No Data Anesthesia Cardiac Studies: No Data to Display
--- NOTE | 2021-06-04 14:39 | W.PM.OPSUD ---
Surgery/Procedure H&P Update DATE OF PROCEDURE: June 04, 2021 DATE H&P PERFORMED: 05/31/21 H&P UPDATE INFORMATION: I have reviewed H&P completed within last 30 days, I have examined patient prior to procedure, No changes to prior documentation and H[place] is in [facility] [place] indicated PREOP DIAGNOSIS: Residual right renal calculi PLANNED PROCEDURE: Operation Date: 06/04/21 14:20 Proposed Procedures p Cystoscopy 44031 11546 14639 N20.0(Not Applicable) - Sanchez Paulson MD s Ureteroscopy(Right) - MD alexandre Rosas Retrograde Pyelogram(Not Applicable) - MD alexandre Rosas Laser Lithotripsy(Not Applicable) - MD alexandre Rosas Ureteral Stent Exchange(Not Applicable) - Sanchez Paulson MD
--- NOTE | 2021-06-04 14:43 | P.OP_ITS ---
Operative Report Date of procedure: June 04, 2021 Pre-op Diagnosis: Residual right renal calculi Post-op diagnosis: same Procedure Done: 1. Cystoscopy with right ureteral stent exchange 2. Right ureteroscopy, laser lithotripsy Implants: 7 [place] by 24 cm double-pigtail stent without string Specimens removed/disposition: Stone fragments Pathology: Stone fragments Surgeon: Lorene Anesthesia: General Estimated blood loss: <10 cc Urine output: Not measured Complications: none Findings: There was a Steinstrasse type impaction of stones in the mid ureter that required laser lithotripsy to clear in order to remove the stent. There is a large amount of very small pieces in the renal pelvis and a collection of moderate sized pieces in one of the lower pole calyces. Both of these areas were thoroughly treated with laser lithotripsy and at the completion there were no large or moderate sized pieces remaining. Attempts at basketing these tiny pieces were unsuccessful. Some more small enough to be washed through the scope via irrigation Condition: stable Disposition: PACU Brief History: Ms. Henry is a very pleasant 55-year-old white female who was treated originally with 2 areas of stones in the left renal pelvis and calyceal system. The first stone was very typical looking on x-ray. There was only partial resolution with ESWL for that reason she was taken back later for endoscopic evaluation and found to have a very atypical stone that really had not changed at all with ESWL and another stone that had changed significantly but not completely. The atypical looking stone was the character of rotten wood as best I could describe it and it was completely obliterated with laser lithotripsy. The other stone fragments were treated significantly but not necessarily completely and visualization became poor enough that I could not say for sure that the job of been completed. It was [facility] and retreatment as needed. She is back now for that purpose. Procedure: After routine preoperative evaluation examination and obtaining of informed consent she was taken to the operating suite on 06/04/2021 where general anesthesia was administered without difficulty after appropriate timeout was performed, SCDs confirmed to be functioning, preoperative antibiotics administered, beta-natalio protocol confirmed. Prepped and draped in usual sterile fashion in dorsolithotomy position paying careful attention to avoiding pressure points. The 21 [place] cystoscope with 30 degree lens was introduced into urethra meatus and advanced into the bladder without difficulty. The stent was grasped very distally and withdrawn through the urethral meatus with uncurling of the proximal end. A flexible tip guidewire was then advanced through the stent up the ureter and it came out one of the side-port at the very tip. The wire went up to the upper pole calyx area. The stent was then withdrawn part of the way but became somewhat lodged in the mid ureter it appeared that the proximal aspect that was proximal to where the stent came out of a side port was hanging up. The wire was then secured to the drapes as a safety wire and an offset semirigid ureteroscope was advanced up the right ureter next to the stent and a cluster of small fragments was encountered for a distance estimated about 2 cm and these were fragmented with laser which allowed free and easy removal of the stent under fluoroscopic and ureteroscopic observation. More the fragments that remained were fragmented into sand and these were flushed free from the ureter. The area where the impaction had occurred was pretty inflamed. The scope was passed all the way up past the UPJ and no additional stones were seen in that area. A second guidewire was then passed next to the first the and the first secured to the drapes as a safety wire. A 24 cm ureteral access sheath was advanced over the working wire to just below the UPJ. The digital flexible ureteroscope was then advanced through the sheath into the renal pelvis which was carefully inspected with looking in all of the calyceal system. There was a accumulation of fairly small stone fragments in the renal pelvis and one of the lower pole calyx where the initial stone was seen had some moderate sized fragments. Both of these areas were thoroughly treated with the 200 ?m thulium superpulse laser fiber and by the completion of the procedure and inspecting all the calyces there were no significant fragments remaining that would likely cause problems passing. Final inspection revealed good hemostasis, no large fragments, and intact collecting system. The scope was withdrawn no additional stone fragments were seen in the ureter. The cystoscope was then backloaded over the working wire and a 7 [place] by 24 cm double-pigtail stent was advanced over the guidewire through the cystoscope into appropriate position as confirmed via fluoroscopy and cystoscopy. The stent was confirmed to be draining. Large amount of small fragments were found in the bladder and these were flushed free from the bladder and sent for pathologic evaluation. She tolerated procedure well without complications and was awakened in the operating room and returned to the recovery room in stable condition. PLANS: 1. Anticipate discharge from outpatient surgery 2. Continue antibiotics until the stent has been removed for several days 3. Follow-up in 7 to 10 days with a KUB. Likely stent removal.
[2021-06-04] MEDS: levofloxacin-dextrose 5 % 500 MG/100 ML PREMIX 100 MG IV (14:55)
--- NOTE | 2021-06-04 18:00 | ANE.PACU2 ---
Inpatient post-anesthesia follow up: Airway intact: Yes Vital signs: Temperature 97.7 F Pulse Rate 66 Respiratory Rate 17 Blood Pressure 137/84 Pulse Oximetry 98 Oxygen Delivery Me thod Room Air Oxygen Flow Rate Fraction of Inspir ed Oxygen Hydration adequate: Yes Nausea and vomiting: No Pain level: 2 Mental status: Baseline
[2021-06-08 21:07] LABS: Stone Source RIGHT RENAL CALCULI
== END 2021-06-04 17:02 | disposition home or self-care (01) ==
PROVIDERS: PCP Family Medicine; Visit Provider Urology
PROC: 0TJB8ZZ Inspection of Bladder, Via Natural or Artificial Opening Endoscopic (ICD-10-PCS; CPT 52000; principal; 2021-06-04 14:20)
PROC: 0TJ98ZZ Inspection of Ureter, Via Natural or Artificial Opening Endoscopic (ICD-10-PCS; CPT 52351; 2021-06-04 14:20)
PROC: (CPT 52356; 2021-06-04 14:20)
PROC: (CPT 52356; 2021-06-04 14:20)
DX: N20.0 Calculus of kidney (principal); K21.9 Gastro-esophageal reflux disease without esophagitis; E78.5 Hyperlipidemia, unspecified; I10 Essential (primary) hypertension; E03.9 Hypothyroidism, unspecified
CPT/HCPCS: 52356; 76000; 82365; 88300; C2625; J1956; J2405; J2704; J3010; J7030

== ENCOUNTER 2021-06-15 09:18 | Outpatient (CLI) | payer MEDICARE, MEDICAID, SELFPAY ==
--- NOTE | 2021-06-15 10:00 | XR_ITS ---
WS: [id number] Exam: XR KUB [id number] Date/Time of Exam: 06/15/2021 9:24 AM Reason For Exam: RENAL STONE A right ureteral stent is noted and appears to be in satisfactory location. Several small nonspecific pelvic calcifications noted. No bowel obstruction or free air. No organ enlargement noted. Regional bony elements are intact. XR/XR KUB [id number] IMPRESSION: 1. Right ureteral stent catheter in place appearing to be in appropriate locati on.
== END 2021-06-15 09:19 | disposition home or self-care (01) ==
LOC: RAD 09:20
PROVIDERS: PCP Family Medicine; Visit Provider Urology
DX: N20.0 Calculus of kidney (principal); Z96.0 Presence of urogenital implants
CPT/HCPCS: 74018

== ENCOUNTER 2021-09-04 13:02 | Outpatient (CLI) | payer MEDICARE, MEDICAID, SELFPAY ==
--- NOTE | 2021-09-04 15:00 | XR_ITS ---
WS: [id number] Exam: XR KUB [id number] Date/Time of Exam: 09/04/2021 3:00 PM Reason For Exam: RENAL STONE Comparison 06/15/2021. No bowel obstruction or free air. No calcifications seen over the region of the kidneys. No sign of o rgan enlargement. Moderate amount stool throughout the colon. Small nonspecific bilateral pelvic calc ifications. Unremarkable bony elements. XR/XR KUB [id number] IMPRESSION: 1. No calcifications seen in the region of the kidneys. No acute abdominal find ing.
== END 2021-09-04 13:03 | disposition home or self-care (01) ==
LOC: RAD 13:05
PROVIDERS: PCP Family Medicine; Visit Provider Urology
DX: N20.0 Calculus of kidney (principal); N30.20 Other chronic cystitis without hematuria
CPT/HCPCS: 74018; 81003

== ENCOUNTER 2023-01-07 06:41 | Outpatient (CLI) | payer MEDICARE, MEDICAID, SELFPAY ==
--- NOTE | 2023-01-07 07:24 | XR_ITS ---
WS: [id number] EXAMINATION: XR KUB [id number] REASON FOR EXAM: Urolithiasis COMPARISON: 09/04/2021 ORDER DATE: 01/07/2023 7:24 AM FINDINGS: There is a nonspecific colonic gas pattern with scattered fecal content and gas. There is no sign of significant small bowel dilation. No pathologic abdominal calcification is seen within the renal ou tlines. Tiny phleboliths are present in the pelvic cavity. There is one 2 mm calcification faintly se en which would correlate with the location of the right ureterovesical junction but this is also cons idered a phlebolith since it is unchanged compared with the previous study on 09/04/2021. XR/XR KUB [id number] IMPRESSION: No evidence of urolithiasis on the plain film study
== END 2023-01-07 06:42 | disposition home or self-care (01) ==
LOC: RAD 06:43
PROVIDERS: PCP Family Medicine; Visit Provider Urology
DX: N20.9 Urinary calculus, unspecified (principal); N39.0 Urinary tract infection, site not specified; N39.3 Stress incontinence (female) (male); M79.609 Pain in unspecified limb
CPT/HCPCS: 74018; 81003; 99213

== ENCOUNTER 2023-09-16 13:21 | Outpatient (CLI) | payer MEDICARE, MEDICAID, SELFPAY ==
--- NOTE | 2023-09-16 13:31 | MM_ITS ---
WS: [id number] DIAGNOSTIC BILATERAL DIGITAL BREAST TOMOSYNTHESIS MAMMOGRAPHY WITH CAD LEFT breast ultrasound, limited. HISTORY: UNSPECIFIED LT BR LUMP COMPARISON: 08/18/2020 and 04/06/2019 TECHNIQUE: Bilateral craniocaudad, mediolateral oblique, and mediolateral views are submitted with to mosynthesis and SM. Spot compression RIGHT CC. Spot compression LEFT CC and MLO. Computer aided detec tion utilized. Breast composition: There are scattered areas of fibroglandular density. Focal asymmetry in the media l RIGHT breast has been present on prior studies without interval change since 2019. There is no unde rlying abnormality in the region of the palpable marker along the inferior medial LEFT breast. LEFT breast ultrasound, limited. Ultrasound directed LEFT breast at 8:00 for the palpable abnormality. There is no underlying mass. Th ere does appear to be an encapsulated breast lobule which is similar to the adjacent breast tissue. T here is no mass or increased vascularity. IMPRESSION: MM/[place] [id number] BI-RADS: 2-Benign FOLLOW UP: 1 Year Follow-up
== END 2023-09-16 13:22 | disposition home or self-care (01) ==
LOC: RAD 13:21
PROVIDERS: PCP Family Medicine; Visit Provider Nurse Practitioner Women's Health
DX: N63.24 Unspecified lump in the left breast, lower inner quadrant
CPT/HCPCS: 76642; 77062; G0279

== ENCOUNTER 2024-10-18 07:42 | Outpatient (CLI) | payer MEDICARE, MEDICAID, SELFPAY ==
--- NOTE | 2024-10-18 07:56 | MM_ITS ---
WS: [id number] DIAGNOSTIC BILATERAL DIGITAL BREAST TOMOSYNTHESIS MAMMOGRAPHY WITH CAD LEFT breast ultrasound, limited HISTORY: ABNORMAL MAMMOGRAM COMPARISON: 09/16/2023, 02/20/2022 TECHNIQUE: Bilateral craniocaudad, mediolateral oblique, and mediolateral views are submitted with to mosynthesis and SM. Spot compression LEFT CC and MLO. Computer aided detection utilized. Breast composition: There are scattered areas of fibroglandular density. Triangular marker is placed along the medial inferior LEFT breast at the palpable nodule site. There is no underlying mass identified. No distortion or skin thickening. There are a few benign calcificat ions within each breast. Prior biopsy clip central RIGHT breast. LEFT breast ultrasound, limited. Ultrasound does redemonstrate a nearly isoechoic mass to the adjacent breast tissue at 8:00, 3 cm fro m the nipple. This does correspond to the mass identified by the patient. Palpable abnormality measur es 2.1 x 2.8 x 0.9 cm. A similar finding was noted on 09/16/2023 MM/MM diag BI tomosynthesis [id number] IMPRESSION: BI-RADS: 2 - Benign. FOLLOW UP: 1 Year Follow-up Palpable area in the LEFT breast is isoechoic to the adjacent breast tissue. Th is is most consistent with a small lipoma or encapsulated breast lobule. No jocelyne picion for malignancy.
--- NOTE | 2024-10-18 08:27 | US_ITS ---
WS: [id number] DIAGNOSTIC BILATERAL DIGITAL BREAST TOMOSYNTHESIS MAMMOGRAPHY WITH CAD LEFT breast ultrasound, limited HISTORY: ABNORMAL MAMMOGRAM COMPARISON: 09/16/2023, 02/20/2022 TECHNIQUE: Bilateral craniocaudad, mediolateral oblique, and mediolateral views are submitted with to mosynthesis and SM. Spot compression LEFT CC and MLO. Computer aided detection utilized. Breast composition: There are scattered areas of fibroglandular density. Triangular marker is placed along the medial inferior LEFT breast at the palpable nodule site. There is no underlying mass identified. No distortion or skin thickening. There are a few benign calcificat ions within each breast. Prior biopsy clip central RIGHT breast. LEFT breast ultrasound, limited. Ultrasound does redemonstrate a nearly isoechoic mass to the adjacent breast tissue at 8:00, 3 cm fro m the nipple. This does correspond to the mass identified by the patient. Palpable abnormality measur es 2.1 x 2.8 x 0.9 cm. A similar finding was noted on 09/16/2023 US/US breast LT limited* [id number] IMPRESSION: BI-RADS: 2 - Benign. FOLLOW UP: 1 Year Follow-up Palpable area in the LEFT breast is isoechoic to the adjacent breast tissue. Th is is most consistent with a small lipoma or encapsulated breast lobule. No jocelyne picion for malignancy.
== END 2024-10-18 07:43 | disposition home or self-care (01) ==
LOC: RAD 07:48
PROVIDERS: PCP Family Medicine; Visit Provider Family Medicine
DX: R92.8 Other abnormal and inconclusive findings on diagnostic imaging of breast (principal); R92.323 Mammographic fibroglandular density, bilateral breasts; R92.1 Mammographic calcification found on diagnostic imaging of breast
CPT/HCPCS: 76642; 77062; G0279

== ENCOUNTER 2025-10-19 07:52 | Outpatient (CLI) | payer MEDICARE, SELFPAY ==
--- NOTE | 2025-10-19 07:59 | MM_ITS ---
WS: [id number] BILATERAL SCREENING DIGITAL TOMOSYNTHESIS MAMMOGRAM WITH CAD HISTORY: SCREENING COMPARISON: 04/06/2019, 10/18/2024, 09/16/2023 Bilateral CC and MLO views with tomosynthesis and synthetic mammography submitted. Computer aided detection analyzed. Breast composition: There are scattered areas of fibroglandular density. No suspicious masses, microcalcifications or architectural distortion. Stable asymmetries and calcifications in each breast. MM/MM scr BI tomosynthesis [id number] IMPRESSION: BI-RADS: 2 - Benign. FOLLOW UP: 1 Year Follow-up
== END 2025-10-19 07:53 | disposition home or self-care (01) ==
PROVIDERS: PCP Family Medicine; Visit Provider Family Medicine
DX: Z12.31 Encounter for screening mammogram for malignant neoplasm of breast (principal); R92.323 Mammographic fibroglandular density, bilateral breasts; N64.89 Other specified disorders of breast
CPT/HCPCS: 77063; 77067